=== PATIENT | male | born 1930 | race Caucasian/White ===

== ENCOUNTER → 2018-12-23 13:13 | Outpatient (CLI) | payer MEDICARE, OTHER ==
[2015-07-11 09:04] VITALS: BMI 24.5
[~2018-12-23 13:13] MED LIST: ACETAMINOPHEN500 M1 PO; BABY ASPIRIN81 MG PO; FERROUS SULFAT325 MG PO; IMDUR60 MG PO; LIPITOR40 MG PO; MUCOMYST 2800 MG/4 M PO; NORCO 5/325 TAB1 TA1 PO; PLAVIX75 MG PO; PREVACID30 MG PO; PROTONIX40 MG PO; TOPROL XL50 MG PO; ULORIC40 MG PO; XANAX1 MG PO
== END | disposition home or self-care (01) ==
LOC: D.HCCECHO 13:13
PROVIDERS: ATTEND Internal Medicine Cardiovascular Disease
DX: I25.10 Atherosclerotic heart disease of native coronary artery without angina pectoris (principal)

== ENCOUNTER 2019-05-05 00:06 | Emergency (ER) | payer MEDICARE, OTHER ==
[~2019-05-05] VITALS: Ht 172.7 cm; Wt 68.0 kg
[2019-05-05 00:08] VITALS: Ht 172.7 cm; Wt 68.0 kg
[2019-05-05] MEDS ORDERED: CYCLOBENZAPRINE10 MG PO (02:10)
[2019-05-05 02:49] VITALS: BP 125/78
== END 2019-05-05 02:49 | disposition home or self-care (01) ==
LOC: D.ER 00:06
DX: S39.012A Strain of muscle, fascia and tendon of lower back, initial encounter (principal); W10.9XXA Fall (on) (from) unspecified stairs and steps, initial encounter; Y92.000 Kitchen of unspecified non-institutional (private) residence as the place of occurrence of the external cause; I10 Essential (primary) hypertension; I25.10 Atherosclerotic heart disease of native coronary artery without angina pectoris; Z95.5 Presence of coronary angioplasty implant and graft; Z95.0 Presence of cardiac pacemaker; Z95.1 Presence of aortocoronary bypass graft

== ENCOUNTER 2019-05-06 13:12 | Inpatient (IN) | payer MEDICARE, OTHER ==
[~2019-05-06] VITALS: Ht 172.7 cm; Wt 68.0 kg
[~2019-05-06 13:12] MED LIST changes: +CYCLOBENZAPRINE10 MG PO
[2019-05-06 15:57] LABS: BASOPHILS 0.2 % (0-2); EOSINOPHILS 6.4 % (0-7); HEMATOCRIT 34.4 % (42.0-54.0); HEMOGLOBIN 10.3 g/dL (13.5-17.5); IMMATURE GRANULOCYTES 0.3 % (0-5); LYMPHOCYTES 14.1 % (15-50); MCH 26.9 pg (26.0-34.0); MCHC 29.9 g/dL (31.0-37.0); MCV 89.8 fL (80.0-100.0); MEAN PLATELET VOLUME 10.2 fL (7.4-10.4); MONOCYTES 10.3 % (2-11); NEUTROPHILS 68.7 % (40-80); RBC 3.83 10x6/uL (4.20-6.10); RDW 18.3 % (11.5-14.5); WBC 6.2 10x3/uL (4.8-10.8)
[2019-05-06 16:04] LABS: ANION GAP 15.8 mmol/L (8-16); CALCIUM 8.7 mg/dL (8.5-10.1); CARBON DIOXIDE 24.3 mmol/L (21.0-32.0); CREATININE - SERUM 2.8 mg/dL (0.6-1.3); POTASSIUM - SERUM 5.1 mmol/L (3.5-5.1)
[2019-05-06 16:09] LABS: BILIRUBIN - TOTAL 0.37 mg/dL (0.2-1.3); PROTEIN - SERUM 7.4 g/dL (6.4-8.2)
[2019-05-06 16:22] LABS: PLATELET COUNT 190 10x3/uL (130-400)
[2019-05-06 17:08] LABS: BILIRUBIN NEGATIVE (NEGATIVE); GLUCOSE NEGATIVE (NEGATIVE); KETONE NEGATIVE (NEGATIVE); NITRITE NEGATIVE (NEGATIVE); UROBILINOGEN NORMAL (NORMAL)
--- NOTE | 2019-05-06 17:57 | NUR ---
PT GIVEN DINNER TRAY
[2019-05-06 20:00] VITALS: BP 152/80
[2019-05-06 22:24] VITALS: BP 158/78; BMI 22.8
[2019-05-07 04:22] LABS: BASOPHILS 0.1 % (0-2); HEMATOCRIT 34.6 % (42.0-54.0); HEMOGLOBIN 10.4 g/dL (13.5-17.5); IMMATURE GRANULOCYTES 0.1 % (0-5); LYMPHOCYTES 9.5 % (15-50); MCHC 30.1 g/dL (31.0-37.0); MCV 89.9 fL (80.0-100.0); MONOCYTES 9.4 % (2-11); NEUTROPHILS 75.9 % (40-80); PLATELET COUNT 176 10x3/uL (130-400); RBC 3.85 10x6/uL (4.20-6.10); RDW 18.2 % (11.5-14.5)
[2019-05-07 04:39] LABS: APTT 30.2 SECONDS (22.8-39.4); INR 1.06 (0.85-1.17); PROTIME 13.7 SECONDS (11.6-15.0)
[2019-05-07 04:57] LABS: % SATURATION 16 % (15-55); IRON 24 ug/dl (35-150); TOTAL IRON BIND CAPACITY 150 ug/dl (260-445); UNSAT IRON BIND CAPACITY 126 ug/dl (150-375)
[2019-05-07 05:17] LABS: ANION GAP 11.6 mmol/L (8-16); CALCIUM 8.8 mg/dL (8.5-10.1); CARBON DIOXIDE 24.6 mmol/L (21.0-32.0); CREATININE - SERUM 2.5 mg/dL (0.6-1.3); MAGNESIUM - SERUM 1.9 mg/dL (1.8-2.4); PHOSPHOROUS 4.2 mg/dL (2.5-4.9); POTASSIUM - SERUM 5.2 mmol/L (3.5-5.1)
[2019-05-07 08:17] VITALS: BP 161/83
--- NOTE | 2019-05-07 11:18 | NUR ---
PT IS VERY UPSET THAT HE HAS BEEN ADMITTED TO HOSPITAL, PT STATES THAT DR ESTES HAS ALREADY ADDRESSED THE PROBLEMAS THAT HE HAS AND HE HAS AN APPOINTMENT NEXT WEEK WITH DR REBOLLEDO OUT AT [facility]. PT SPOUSE CAME IN AND WAS UPSET THAT PT STILL HAD ON DIRTY SHIRT FROM LAST NIGHT, EXPLAINED THAT PT REFUSED TO GET CHANGED HIS REASONING IS " I AM LEAVING TODAY, SO WHY DO I NEED TO CHANGE" GERIATRIC CARE MANAGER IS IN MEETING AT THIS TIME, UNABLE TO REACH, EXPLAINED DR HASSAN WILL BE BY LATER. PT SPOUSE STATED PT IS VERY ANXIOUS AND SHE WOULD LIKE FOR HIM TO HAVE SOMETHING. I ASKED IF PT TAKES ANYTHING AT HOME FOR ANXIETY AND PT STATED NO. ADVISED PT AND SPOUSE WE WILL NEED TO GET AN ORDER FROM THE DR HIDALGO. CL IN REACH, CONTINUE WITH PLAN OF CARE
[2019-05-07 13:05] VITALS: Ht 172.7 cm; Wt 68.0 kg
[2019-05-07 13:52] VITALS: BP 150/71
--- NOTE | 2019-05-07 14:22 | MORECARE ---
CASE MANAGEMENT DISCHARGE SUMMARY PATIENT: POOJA DIAZ UNIT: [id number] ADM DATE: 05/06/19 AGE: 88 : [birth year] SEX: M ROOM/BED: D.2230 AUTHOR: DENISE SUAZO PHYSICIAN: REFERRING PHYSICIAN: CODY HASSAN MD DATE OF SERVICE: 05/07/19 Discharge Plan Patient Name[facility] [facility] 1930 Planned Disposition: Home Anticipated Discharge Date: 05/07/19 Discharge Date: Expected LOS: 1 Initial Reviewer: [email or web address] Initial Review Date: 05/07/2019 Generated: 05/07/19 3:22 pm External Providers [facility] Next Contact Date: Service Request Date: Service Type: Resolution: Reviewer: Comments: Patient Name: POOJA DIAZ Page [id number] at 1422 All edits/amendments must be made on the electronic document DICTATION DATE: 05/07/19 1422 TANKROOM TENDER: DEMOND 05/07/19 1422 RPT#: [id number] ND DATE: STATUS: ADM IN [place] [address] [place] [address] END OF REPORT
--- NOTE | 2019-05-07 14:33 | MORECARE ---
CASE MANAGEMENT DISCHARGE SUMMARY PATIENT: POOJA DIAZ RAMYA UNIT: [id number] ADM DATE: 05/06/19 AGE: 88 : [birth year] SEX: M ROOM/BED: D.2230 AUTHOR: DENISE SUAZO PHYSICIAN: REFERRING PHYSICIAN: CODY HASSAN MD DATE OF SERVICE: 05/07/19 Discharge Plan Patient Name: POOJA DIAZ [facility] [facility] 1930 Planned Disposition: Home Anticipated Discharge Date: 05/07/19 Discharge Date: Expected LOS: 1 Initial Reviewer: [email or web address] Initial Review Date: 05/07/2019 Generated: 05/07/19 3:32 pm DCPIA - Discharge Planning Initial Assessment Updated by [email or web address]: Sheree Styles on 05/07/19 2:26 pm * Is the patient Alert and Oriented? Yes * How many steps to enter\exit or inside your home? 1/0 * PCP Dr. Hollis * [facility] [address] * Preadmission Environment Home with Family * ADLs Independent * Equipment None * List name and contact numbers for known caregivers / representatives who currently or will assist patient after discharge: Tri ojvmti - [phone] * Verbal permission to speak to the caregivers and representatives has been obtained from the patient. Yes * Community resources currently utilized None * Additional services required to return to the preadmission environment? Yes * Can the patient safely return to the preadmission environment? Yes * Has this patient been hospitalized within the prior 30 days at any hospital? No Last DP export: 05/07/19 1:22 p Patient Name: POOJA DAIZ Page [id number] at 1433 All edits/amendments must be made on the electronic document DICTATION DATE: 05/07/19 143 MANAGER WEB APPLICATION: DEMOND 05/07/19 143 RPT#: [id number] DC DATE: STATUS: ADM IN [facility] [address] [place] [address] END OF REPORT
--- NOTE | 2019-05-07 14:41 | MORECARE ---
CASE MANAGEMENT DISCHARGE SUMMARY PATIENT: POOJA DIAZ UNIT: [id number] ADM DATE: 05/06/19 AGE: 88 : [birth year] SEX: M ROOM/BED: D.2230 AUTHOR: LAKEISHADOC PHYSICIAN: REFERRING PHYSICIAN: CODY FARAH MD DATE OF SERVICE: 05/07/19 Discharge Plan Patient Name: POOJA DIAZ Facility: [facility]:[place] : 1930 Planned Disposition: Home Anticipated Discharge Date: 05/07/19 Discharge Date: Expected LOS: 1 Initial Reviewer: [email or web address] Initial Review Date: 05/07/2019 Generated: 05/07/19 3:41 pm Comments DCP- Discharge Planning Updated by [email or web address]: Sheree Styles on 05/07/19 1:[address] Oxygen saturation on room air is 98%, he does not qualify for home oxygen. CM will continue to follow and assist with discharge planning/needs. DCP- Discharge Planning Updated by [email or web address]: Sheree Styles on 05/07/19 1:[address] Patient Name: POOJA DIAZ Admission Status: ER Accout number: [id number] Admission Date: 05-06-2019 : 1930 Admission Diagnosis: Attending: CODY FARAH Current LOS: 1 Anticipated DC Date: 05-07-2019 Planned Disposition: Home Primary Insurance: MEDICARE A & B Discharge Planning Comments: CM met with patient to complete initial dc planning assessment. CM educated patient on the CM role and verbal consent given by patient to complete assessment. Patient lives at home with his spouse. At discharge patient plans to return and feels this is a safe discharge. CM discussed availability of home health, rehab services, and medical equipment. Patient denied known discharge needs at this time. I informed patient that Dr. Farah has requested that he have a walker, and he agrees to this. I have faxed an order and spoke to Radha at [facility]. CM will continue to follow and will assist as needed with dc plans/needs. Semiconductor Technician: Sheree Styles DCPIA - Discharge Planning Initial Assessment Updated by [email or web address]: Sheree Styles on 05/07/19 2:26 pm * Is the patient Alert and Oriented? Yes * How many steps to enter\exit or inside your home? 1/0 * PCP Dr. Hollis * [facility] [address] * Preadmission Environment Home with Family * ADLs Independent * Equipment None * List name and contact numbers for known caregivers / representatives who currently or will assist patient after discharge: Tri Torres clldmm - [phone] * Verbal permission to speak to the caregivers and representatives has been obtained from the patient. Yes * Community resources currently utilized None * Additional services required to return to the preadmission environment? Yes * Can the patient safely return to the preadmission environment? Yes * Has this patient been hospitalized within the prior 30 days at any hospital? No Coverage Notice Reviewer: [id number] Brian Styles Notice Issued Date-Time: 05/07/2019 14:37 Notice Type: Patient Choice Letter Notice Delivered To: Patient Relationship to Patient: Self Dryer Operator Name: Delivery Method: HAND - Hand Delivered Aissatou Days: Prior Verbal Notification: Recipient Understood Notice: Yes Recipient Signature: Yes Med Rec Note Co-signed by Attending: Coverage Notice Comment: CORDELIA for Lizzie GRAVES export: 05/07/19 1:33 p Patient Name: POOJA DIAZ Page [phone] at 1441 All edits/amendments must be made on the electronic document DICTATION DATE: 05/07/19 1441 LIVESTOCK SLAUGHTERER: DEMOND 05/07/19 1441 RPT#: [id number] DC DATE: STATUS: ADM IN [facility] [address] [place] [address] END OF REPORT
--- NOTE | 2019-05-08 08:32 | MORECARE ---
CASE MANAGEMENT DISCHARGE SUMMARY PATIENT: POOJA DIAZ UNIT: [id number] ADM DATE: 05/06/19 AGE: 88 : [birth year] SEX: M ROOM/BED: D.2230 AUTHOR: LAKEISHA,DOC PHYSICIAN: REFERRING PHYSICIAN: CODY FARAH MD DATE OF SERVICE: 05/08/19 Discharge Plan Patient Name: POOJA DIAZ Facility: [facility]:[place] : 1930 Planned Disposition: Home Anticipated Discharge Date: 05/07/19 Discharge Date: 05/07/2019 Expected LOS: 1 Initial Reviewer: [email or web address] Initial Review Date: 05/07/2019 Generated: 05/08/19 9:32 am Comments DCP- Discharge Planning Updated by [email or web address]: Sheree Styles on 05/07/19 1:[address] Oxygen saturation on room air is 98%, he does not qualify for home oxygen. CM will continue to follow and assist with discharge planning/needs. DCP- Discharge Planning Updated by [email or web address]: Sheree Styles on 05/07/19 1:[address] Patient Name: POOJA DIAZ Admission Status: ER Accout number: [id number] Admission Date: 05-06-2019 : 1930 Admission Diagnosis: Attending: CODY FARAH Current LOS: 1 Anticipated DC Date: 05-07-2019 Planned Disposition: Home Primary Insurance: MEDICARE A & B Discharge Planning Comments: CM met with patient to complete initial dc planning assessment. CM educated patient on the CM role and verbal consent given by patient to complete assessment. Patient lives at home with his spouse. At discharge patient plans to return and feels this is a safe discharge. CM discussed availability of home health, rehab services, and medical equipment. Patient denied known discharge needs at this time. I informed patient that Dr. Farah has requested that he have a walker, and he agrees to this. I have faxed an order and spoke to Radha at [facility]. CM will continue to follow and will assist as needed with dc plans/needs. Signal Person: Sheree Styles DCPIA - Discharge Planning Initial Assessment Updated by [id number]: Sheree Styles on 05/07/19 2:26 pm * Is the patient Alert and Oriented? Yes * How many steps to enter\exit or inside your home? 1/0 * PCP Dr. Hollis * [facility] [address] * Preadmission Environment Home with Family * ADLs Independent * Equipment None * List name and contact numbers for known caregivers / representatives who currently or will assist patient after discharge: Tri wlbvly - [phone] * Verbal permission to speak to the caregivers and representatives has been obtained from the patient. Yes * Community resources currently utilized None * Additional services required to return to the preadmission environment? Yes * Can the patient safely return to the preadmission environment? Yes * Has this patient been hospitalized within the prior 30 days at any hospital? No Coverage Notice Reviewer: [id number] Brian Styles Notice Issued Date-Time: 05/07/2019 14:37 Notice Type: Patient Choice Letter Notice Delivered To: Patient Relationship to Patient: Self Breakfast Server Name: Delivery Method: HAND - Hand Delivered Aissatou Days: Prior Verbal Notification: Recipient Understood Notice: Yes Recipient Signature: Yes Med Rec Note Co-signed by Attending: Coverage Notice Comment: CORDELIA for Lizzie Alvarado DP export: 05/07/19 1:41 p Patient Name: POOJA DIAZ Page [phone] at 0832 All edits/amendments must be made on the electronic document DICTATION DATE: 05/08/19 0832 WATER FILTRATION TECHNICIAN: DEMOND 05/08/19 0832 RPT#: [id number] DC DATE:05/07/19 STATUS: DIS IN [facility] [address] [place] [address] END OF REPORT
== END 2019-05-07 16:35 | disposition home or self-care (01) | DRG 683 ==
LOC: D.ER 13:12 → D.MS 17:37
PROVIDERS: Emergency Medicine; ADMIT Internal Medicine Nephrology; ATTEND Internal Medicine Nephrology
DX: N17.9 Acute kidney failure, unspecified (principal); I50.22 Chronic systolic (congestive) heart failure; D64.9 Anemia, unspecified; E86.0 Dehydration; I11.0 Hypertensive heart disease with heart failure; J44.9 Chronic obstructive pulmonary disease, unspecified

== ENCOUNTER → 2019-06-01 10:06 | Outpatient (CLI) | payer MEDICARE, OTHER ==
[2019-05-07 13:05] VITALS: BMI 22.8
== END | disposition home or self-care (01) ==
LOC: D.RAD 10:06 → D.CT 11:00
PROVIDERS: ATTEND Urology
DX: N20.0 Calculus of kidney (principal)

== ENCOUNTER 2019-07-28 09:45 | Emergency (ER) | payer MEDICARE, OTHER ==
[~2019-07-28] VITALS: Ht 172.7 cm; Wt 63.2 kg
[2019-07-28 10:10] VITALS: Ht 172.7 cm; Wt 63.2 kg
[2019-07-28] MEDS ORDERED: CARDURA2 MG PO (10:14)
[2019-07-28] MEDS ORDERED: COREG 3.1253.125 MG PO (10:15)
[2019-07-28] MEDS ORDERED: ULORIC40 MG PO (10:15)
[2019-07-28] MEDS ORDERED: BUMETANIDE0.5 MG PO (10:16)
[2019-07-28] MEDS ORDERED: TRIPLE ANTIBI28.4 GM TOPICAL (11:14)
[2019-07-28 11:30] VITALS: BP 124/76
== END 2019-07-28 11:30 | disposition home or self-care (01) ==
LOC: D.ER 09:45
DX: S00.81XA Abrasion of other part of head, initial encounter (principal); W19.XXXA Unspecified fall, initial encounter; Y93.9 Activity, unspecified; Y92.9 Unspecified place or not applicable; I11.0 Hypertensive heart disease with heart failure; I50.9 Heart failure, unspecified; Z95.0 Presence of cardiac pacemaker; J44.9 Chronic obstructive pulmonary disease, unspecified; K21.9 Gastro-esophageal reflux disease without esophagitis

== ENCOUNTER 2019-10-11 20:00 | Emergency (ER) | payer MEDICARE, OTHER ==
[~2019-10-11] VITALS: Ht 172.7 cm; Wt 65.9 kg
[~2019-10-11 20:00] MED LIST changes: +BUMETANIDE0.5 MG PO; +CARDURA2 MG PO; +COREG 3.1253.125 MG PO; +TRIPLE ANTIBI28.4 GM TOPICAL
[2019-10-11 20:02] VITALS: Ht 172.7 cm; Wt 65.9 kg
[2019-10-11 20:43] LABS: BASOPHILS 0.1 % (0-2); HEMATOCRIT 32.9 % (42.0-54.0); HEMOGLOBIN 9.7 g/dL (13.5-17.5); IMMATURE GRANULOCYTES 0.3 % (0-5); LYMPHOCYTES 8.1 % (15-50); MCH 26.9 pg (26.0-34.0); MCHC 29.5 g/dL (31.0-37.0); MCV 91.4 fL (80.0-100.0); MEAN PLATELET VOLUME 10.2 fL (7.4-10.4); MONOCYTES 10.8 % (2-11); NEUTROPHILS 79.7 % (40-80); PLATELET COUNT 163 10x3/uL (130-400); RDW 16.6 % (11.5-14.5); WBC 7.9 10x3/uL (4.8-10.8)
[2019-10-11 20:52] LABS: PROTIME 13.1 SECONDS (11.6-15.0)
[2019-10-11 20:53] LABS: APTT 28.5 SECONDS (22.8-39.4)
[2019-10-11 20:56] LABS: CALC OSMOLALITY 293 mosm/kg (275-300); CALCIUM 8.6 mg/dL (8.5-10.1); CHLORIDE - SERUM 103 mmol/L (98-107); CREATININE - SERUM 2.5 mg/dL (0.6-1.3); GLUCOSE 126 mg/dL (74-106); POTASSIUM - SERUM 4.7 mmol/L (3.5-5.1); SODIUM 138 mmol/L (136-145); UREA NITROGEN 56 mg/dL (7-18); eGFR NON AFRICAN AMERICAN 26 mL/min (90-120)
[2019-10-11 21:08] LABS: ALBUMIN 2.6 g/dL (3.4-5.0); ALKALINE PHOSPHATASE 72 U/L (30-120); ALT (SGPT) 23 U/L (10-68); BILIRUBIN - TOTAL 0.47 mg/dL (0.2-1.3); CKMB 0.8 U/L (0.0-3.6); CREATINE KINASE 19 UL (21-232); PROTEIN - SERUM 6.5 g/dL (6.4-8.2); TROPONIN-I 0.041 ng/mL (0.000-0.060)
[2019-10-11 21:52] VITALS: BP 159/62
== END 2019-10-11 22:16 | disposition other institution (70) ==
LOC: D.ER 20:00
PROVIDERS: Family Medicine
DX: S06.5X9A Traumatic subdural hemorrhage with loss of consciousness of unspecified duration, initial encounter (principal); W19.XXXA Unspecified fall, initial encounter; Y93.9 Activity, unspecified; Y92.9 Unspecified place or not applicable; I11.0 Hypertensive heart disease with heart failure; I50.9 Heart failure, unspecified; Z95.0 Presence of cardiac pacemaker; J44.9 Chronic obstructive pulmonary disease, unspecified; K21.9 Gastro-esophageal reflux disease without esophagitis; Z72.0 Tobacco use; Z95.1 Presence of aortocoronary bypass graft; R42 Dizziness and giddiness; R51 Headache